=== PATIENT | male | born 1970 ===

== ENCOUNTER 2021-02-23 11:22 | Day surgery (SDC) | payer OTHER | END 2021-02-23 16:45 | disposition home or self-care (01) | LOC: AMB-ENDOS 11:22 | PROVIDERS: ATTEND Surgery | DX: D12.5 Benign neoplasm of sigmoid colon (principal); Z12.11 Encounter for screening for malignant neoplasm of colon; Z20.822 Contact with and (suspected) exposure to COVID-19; K64.8 Other hemorrhoids ==